=== PATIENT | female | born 1955 | race Caucasian/White ===

== ENCOUNTER → 2016-08-29 | Outpatient (CLI) | payer MEDICARE, OTHER ==
[2016-08-29 11:11] LABS: EKG EKG PERFORMED
== END ==
LOC: LABPAT 10:53
PROVIDERS: ATTEND Surgery Plastic and Reconstructive Surgery
DX: Z01.810 Encounter for preprocedural cardiovascular examination (principal); Z01.812 Encounter for preprocedural laboratory examination
CPT/HCPCS: 84132; 93005

== ENCOUNTER 2016-09-02 13:13 | Day surgery (SDC) | payer MEDICARE, OTHER ==
[2016-08-16 17:18] VITALS: BMI 29.7
--- NOTE | 2016-09-01 21:13 | P.GSHP ---
History of Present Illness H&P Date: 09/02/16 CHIEF COMPLAINT: Gastroesophageal reflux disease. HISTORY OF PRESENT ILLNESS: Amanda Elias is a 60 year-old female who is status post manometry. She has history of increasing epigastric abdominal pain and severe regurgitation with intermittent aspiration. She has severe gastroesophageal reflux disease with esophagitis including hiatal hernia. Despite medical treatment, her symptoms are uncontrolled. Now she presents for surgical intervention. Surgical and non- surgical options were reviewed and she has now elected to pursue with surgery. PAST MEDICAL HISTORY: Please see list PAST SURGICAL HISTORY: Please see list MEDICATIONS: Please see list ALLERGIES: Denies. SOCIAL HISTORY: No illicit drug use or recent tobacco use FAMILY HISTORY: Pertinent for gallbladder disease REVIEW OF ORGAN SYSTEMS: HEENT: No reports of dysphagia. Denies any trouble with vision, hearing or nosebleeds. GI: Gastroesophageal reflux disease. Regurgitation of bile at night. Her last colonoscopy was approximately 5 years with a history of polyps. Musculoskeletal: Diffuse pain and discomfort. CONSTITUTIONAL: No fevers or chills. LYMPHATIC: The patient denies any lumps and bumps around the neck. ENDOCRINE: Reports increased sweats. Denies any blood sugar glucose intolerance. RESPIRATORY: Denies pneumonia. Denies any troubles with breathing or dyspnea on exertion. CARDIOVASCULAR: Denies any chest pain, palpitations, or recent heart attacks. GENITOURINARY: Denies any blood in urine or increased urinary frequency. NEUROLOGIC: Denies any numbness or tingling along the distal extremities. No seizure disorders or headaches. PSYCHIATRIC: Denies any depression or suicidal ideation. HEMATOLOGIC: Denies any abnormal bleeding or bruising. BREASTS: Denies any breast lumps, pain or nipple discharge. PHYSICAL EXAM: VITAL SIGNS: Afebrile vital signs stable GENERAL: Well developed and in no acute distress. Pleasant. HEENT: No sclera icterus. Extraocular movements grossly intact. Moist buccal mucosa. Head is atraumatic, normocephalic. Hears conversational speech. No nasal drainage. NECK: Supple without lymphadenopathy. No JV distention. CHEST: Non-labored respirations and equal bilateral excursions. CARDIOVASCULAR: Regular rate and rhythm. Palpable 2+ radial pulses. ABDOMEN: Soft. Non-tender. Nondistended. MUSCULOSKELETAL: No clubbing, cyanosis or edema. NEUROLOGIC: No focal or lateralizing signs. PSYCH: Appropriate affect. Alert and oriented to person, place and time. STUDIES: Manometry report was reviewed and demonstrated a short lower esophageal valve, which is less than 3 cm. Separately, no evidence of esophageal dysmotility was identified. Lower esophageal sphincter pressure was within normal limits. ASSESSMENT: 1. Gastroesophageal reflux disease. 2. Diaphragmatic hiatal hernia. 3. Overweight. PLAN: 1. I have gone over dietary surveillance and counseling including preop and postoperative diet. A 2-week high protein/low caloric diet of at least 75 grams and 800 kcal was reviewed to help address hepatomegaly. She had demonstrated understanding along side with her daughter. 2. Robotic assisted laparoscopic paraesophageal hiatal hernia with Keturah fundoplasty and mesh placement was also discussed. 3. Inpatient hospitalization anticipated for 2 nights was described. 4. Postoperative complications including dysphagia was reviewed, which may need revision of her Keturah, which she also expressed understanding. 5. A postoperative Keturah diet was reviewed in detail including avoidance of foods such as meats and carbonated beverages. 6. Recommended at least 4 weeks of strict no lifting over 4 pounds in 4 weeks was advised. 7. She will follow up anytime sooner for further questions. Past Medical History Past Medical History: COPD, GERD/Reflux, Osteoarthritis (OA), Thyroid Disorder Additional Past Medical History / Comment(s): hiatal hernia, osteoarthritis back and rt hip, varicose veins, states occasional swelling in knees and feet. History of Any Multi-Drug Resistant Organisms: None Reported Past Surgical History: Section, Cholecystectomy Past Anesthesia/Blood Transfusion Reactions: No Reported Reaction Past Psychological History: Anxiety, Depression Smoking Status: Current every day smoker Past Alcohol Use History: None Reported Additional Past Alcohol Use History / Comment(s): smoker since age 16 down to 1 /2-1ppd. smoking for approx. 45 years. Past Drug Use History: None Reported - Past Family History Sister(s) Family Medical History: Deep Vein Thrombosis (DVT) Father Family Medical History: Cancer, Coronary Artery Disease (CAD) Mother Family Medical History: Cancer Medications and Allergies Home Medications Medication Instructions Recorded Confirmed Type ALPRAZolam [Xanax] 0.25 mg PO DAILY PRN 08/31/14 08/25/16 History Alendronate Sodium [Fosamax] 70 mg PO FR 08/31/14 08/25/16 History Cyclobenzaprine [Flexeril] 5 mg PO BID 08/31/14 08/25/16 History FLUoxetine HCL [PROzac] 20 mg PO DAILY 08/31/14 08/25/16 History Loratadine [Claritin] 10 mg PO DAILY 08/31/14 08/25/16 History Ranitidine HCl [Zantac] 150 mg PO BID 08/31/14 08/25/16 History Albuterol Inhaler [Ventolin Hfa 1 - 2 puff INHALATION Q6HR PRN 06/01/16 History Inhaler] Ibuprofen [Motrin] 800 mg PO BID PRN 06/01/16 08/25/16 History Acetaminophen Tab [Tylenol Tab] 1,000 mg PO BID PRN 08/25/16 08/25/16 History Benadryl 10 Mg 10 mg PO BID PRN 08/25/16 History Fluticasone Nasal [place] [Flonase 1 spray EA NOSTRIL DAILY 08/25/16 08/25/16 History Nasal [place]] Hydrochlorothiazide 25 mg PO DAILY 08/25/16 08/25/16 History Omeprazole [PriLOSEC] 20 mg PO BID 08/25/16 08/25/16 History Tiotropium 18 Mcg/Puff [Spiriva] 1 cap INHALATION DAILY 08/25/16 08/25/16 History Allergies Allergy/AdvReac Type Severity Reaction Status Date / Time No Known Allergies Allergy Verified 08/25/16 10:52
--- NOTE | 2016-09-02 12:49 | P.HPADDEND ---
H&P Addendum H&P Addendum Date: 09/02/16 PLAN: 1. I have gone over dietary surveillance and counseling including preop and postoperative diet. A 2-week high protein/low caloric diet of at least 75 grams and 800 kcal was reviewed to help address hepatomegaly. She had demonstrated understanding along side with her daughter. 2. Llaparoscopic paraesophageal hiatal hernia with Keturah fundoplasty and mesh placement was also discussed. 3. Inpatient hospitalization anticipated for 2 nights was described. 4. Postoperative complications including dysphagia was reviewed, which may need revision of her Keturah, which she also expressed understanding. 5. A postoperative Keturah diet was reviewed in detail including avoidance of foods such as meats and carbonated beverages. 6. Recommended at least 4 weeks of strict no lifting over 4 pounds in 4 weeks was advised. 7. She will follow up anytime sooner for further questions.
[~2016-09-02 13:13] MED LIST: ACETAMINOPHEN IV (For NPO) 1,000 MG in EMPTY BAG 1 BAG IVPB ONE; DEXAMETHASONE SOD PHOSPHATE 10 MG/ML 1 ML VIAL IV ONE; HEPARIN SODIUM,PORCINE 5,000 UNIT/ML 1 ML VIAL SQ ONE; HYDROmorphone 1 MG/ML 1 ML SYRINGE IVP PRN; LACTATED RINGERS 1,000 ML IV SCH; MIDAZOLAM 2 MG/2 ML VIAL IV PRN; ONDANSETRON 4 MG/2 ML VIAL IVP ONE; SCOPOLAMINE 1.5MG/72HR PATCH TRANSDERM ONE; ceFAZolin 2 GM in SODIUM CHLORIDE 0.9% 100 ML IVPB ONE
[2016-09-02] MEDS ORDERED: LIDOCAINE 1% 20 ML VIAL (10MG/ML) FOR IV START INTRADERMA ONE (13:39)
[2016-09-02] MEDS ORDERED: BUPIVACAIN-EPI 0.25%-1:200,000 30 ML VIAL SQ ONE ×4 (13:49→15:03)
[2016-09-02] MEDS ORDERED: ROCURONIUM BROMIDE 10 MG/ML 10 ML VIAL IV ONE (14:27)
[2016-09-02] MEDS ORDERED: GLYCOPYRROLATE 0.2 MG/ML 2 ML VIAL ONE (14:27)
[2016-09-02] MEDS ORDERED: NEOSTIGMINE 1 MG/ML 10 ML VIAL ONE (14:27)
[2016-09-02] MEDS ORDERED: HYDROmorphone (PF) 1 MG/ML ONE (14:27)
[2016-09-02] MEDS ORDERED: SUCCINYLCHOLINE CHLORIDE 100 MG/5 ML SYR IV ONE (14:27)
[2016-09-02] MEDS ORDERED: PHENYLEPHRINE-0.9% NACL SYG 1 MG/10 ML SYRINGE ONE (14:27)
[2016-09-02] MEDS ORDERED: MIDAZOLAM 2 MG/2 ML VIAL ONE (14:27)
[2016-09-02] MEDS ORDERED: fentaNYL (PF) 50 MCG/ML 2 ML AMP ONE (14:27)
[2016-09-02] MEDS ORDERED: PROPOFOL 10 MG/ML 20 ML VIAL IV ONE (14:27)
[2016-09-02] MEDS ORDERED: LIDOCAINE 1% INJ 10MG/ML (20 ML MDV) ONE (14:27)
[2016-09-02] MEDS ORDERED: LACTATED RINGERS 1,000 ML IV ONE (15:44)
--- NOTE | 2016-09-02 16:59 | P.PCN ---
Date of Procedure: 09/02/16 Preoperative Diagnosis: Paraesophageal hiatal hernia, esophageal reflux disease Postoperative Diagnosis: Same, peritoneal adhesions left upper abdomen and epigastrium Procedure(s) Performed: Laparoscopic paraesophageal diaphragmatic hiatal hernia repair with mesh, lysis of adhesions over 30 minutes Anesthesia: GETA, local Surgeon: April Huddleston Estimated Blood Loss (ml): 5 Pathology: none sent Condition: stable Disposition: floor Operative Findings: Thoracic length xiphoid to umbilicus 19.5 cm, hiatal defect of 4 cm, moderate adhesions left upper quadrant and epigastrium lysed over 30 minutes, intraoperative EGD demonstrates Hill grade 1 lower esophageal valve without ulcerations of the stomach
[2016-09-02] MEDS ORDERED: ACETAMINOPHEN IV (For NPO) 1,000 MG in EMPTY BAG 1 BAG IVPB ONE (17:00)
[2016-09-02] MEDS ORDERED: NALOXONE 0.4 MG/ML 1 ML VIAL IV PRN (17:00)
[2016-09-02] MEDS ORDERED: HYDROcodone/APAP 15 ML SOLUTION PO PRN (17:00)
[2016-09-02] MEDS ORDERED: diphenhydrAMINE 50 MG/ML 1 ML VIAL IVP PRN (17:00)
[2016-09-02] MEDS ORDERED: HYDROmorphone 1 MG/ML 1 ML SYRINGE IVP PRN (17:00)
[2016-09-02] MEDS ORDERED: HYOSCYAMINE ORAL DROPS 1.875 MG/15 ML BOTTLE PO PRN (17:00)
[2016-09-02] MEDS ORDERED: SIMETHICONE 40 MG/0.6 ML DROPS 2,000 MG/30 ML BOTTLE PO PRN (17:00)
[2016-09-02] MEDS: 0.9% NACL WITH KCL 20 MEQ/L 1,000 ML IV SCH (18:51)
[2016-09-03] MEDS: 0.9% NACL WITH KCL 20 MEQ/L 1,000 ML IV SCH ×2 (01:50→08:23)
[2016-09-03 07:38] LABS: Basophils % (A) 0 %; CH 29.3; Eosinophils % (A) 0 %; HCT 40.6 % (34.0-46.0); HGB 12.9 gm/dL (11.4-16.0); Luc # (Auto) 0.13; Luc % (Auto) 1; Lymphocytes % (A) 9 %; MCH 29.4 pg (25.0-35.0); MCHC 31.9 g/dL (31.0-37.0); MCV 92.2 fL (80.0-100.0); Mean Platelet Volume 8.4; Monocytes # (A) 0.4 k/uL (0-1.0); Monocytes % (A) 4 %; Neutrophils # (A) 8.6 k/uL (1.3-7.7); Neutrophils % (A) 85 %; RDW 14.4 % (11.5-15.5); WBC 10.2 k/uL (3.8-10.6); WBC (Perox) 10.66
[2016-09-03 07:50] LABS: Anion Gap 7 mmol/L; Blood Urea Nitrogen 13 mg/dL (7-17); Calcium 8.4 mg/dL (8.4-10.2); Carbon Dioxide 23 mmol/L (22-30); Chloride 111 mmol/L (98-107); Magnesium 1.8 mg/dL (1.6-2.3); Non-African American GFR(MDRD) >60 (>60 ml/min/1.73 sqM); Phosphorous 3.1 mg/dL (2.5-4.5); Potassium 4.1 mmol/L (3.5-5.1); Sodium 141 mmol/L (137-145)
[2016-09-03] MEDS ORDERED: 1: MVI, ADULT NO.4 WITH VIT K 10 ML, THIAMINE 100 MG, FOLIC ACID 1 MG, POTASSIUM CHLORID IV SCH ×6 (08:00)
[2016-09-03 08:40] VITALS: BP 108/77
[2016-09-03] MEDS ORDERED: SODIUM CHLORIDE 0.9% 1,000 ML BAG ONE (08:55)
[2016-09-03] MEDS ORDERED: ENOXAPARIN 40 MG/0.4 ML SYRINGE SQ SCH (09:00)
[2016-09-03] MEDS ORDERED: HYDROCHLOROTHIAZIDE 25 MG TAB PO SCH (09:00)
[2016-09-03] MEDS ORDERED: FLUoxetine HCL 20 MG CAP PO SCH (09:00)
[2016-09-03] MEDS ORDERED: PANTOPRAZOLE 40 MG/10 ML VIAL IV SCH (09:00)
[2016-09-03] MEDS ORDERED: TIOTROPIUM 18 MCG/PUFF INHALER INHALATION SCH (09:00)
[2016-09-03] MEDS ORDERED: LORATADINE 10 MG TAB PO SCH (09:00)
[2016-09-03] MEDS ORDERED: FLUTICASONE 50MCG/SPRAY NASAL 16GM EA NOSTRIL SCH (09:00)
--- NOTE | 2016-09-03 09:02 | FL ---
EXAMINATION TYPE: FL UGI DATE OF EXAM: 09/03/2016 7:55 AM COMPARISON: NONE HISTORY: Post hernia repair TECHNIQUE: A single contrast UGI study is performed. FINDINGS: There is no evidence of obstruction or extravasation. Contrast passed freely into the stoma ch. Subsegmental changes at both lung bases likely the basis of atelectasis.. IMPRESSION: 1. No obstruction or extravasation.
--- NOTE | 2016-09-03 11:51 | P.PN ---
Subjective Principal diagnosis: Gastroesophageal reflux disease The patient is a 61-year-old female with history of hiatal hernia including reflux disease. She had completed manometry including upper endoscopy. She underwent paraesophageal hiatal hernia repair with mesh including Keturah fundoplasty. Postoperatively she was tolerating diet. She denied symptoms of dysphagia. Post Keturah diet was reviewed in detail. Objective - Vital Signs Vital signs: Vital Signs Temp 98 F 09/03/16 07:22 Pulse 88 09/03/16 08:30 Resp 16 09/03/16 08:30 BP 108/77 09/03/16 07:22 Pulse Ox 89 L 09/03/16 08:30 Intake & Output 09/02/16 09/03/16 09/03/16 18:59 06:59 18:59 Intake Total 1700 340 120 Output Total 10 350 150 Balance 168910 30 Weight 76.204 kg Intake: IV 1700 Oral 340 120 Output: Urine 350 150 Estimated Blood Loss 10 Other: Voiding Method Toilet Toilet # Voids 1 - Exam GENERAL: Well developed and in no acute distress. Pleasant. HEENT: No sclera icterus. Extraocular movements grossly intact. Moist buccal mucosa. Head is atraumatic, normocephalic. Hears conversational speech. No nasal drainage. NECK: Supple without lymphadenopathy. No JV distention. CHEST: Non-labored respirations and equal bilateral excursions. CARDIOVASCULAR: Regular rate and rhythm. Palpable 2+ radial pulses. ABDOMEN: Soft, nontender. Nondistended. Incisions clean dry and intact. MUSCULOSKELETAL: No clubbing, cyanosis or edema. NEUROLOGIC: No focal or lateralizing signs. PSYCH: Appropriate affect. Alert and oriented to person, place and time. - Labs CBC & Chem 7: 09/03/16 07:02 09/03/16 07:02 Labs: Abnormal Lab Results - Last 24 Hours (Table) 09/03/16 09/03/16 Range/Units 07:02 07:02 Neutrophils # 8.6 H (1.3-7.7) k/uL Chloride 111 H (98-107) mmol/L Assessment and Plan (1) History of repair of hiatal hernia Status: Acute (2) Gastroesophageal reflux disease with esophagitis Status: Acute (3) Paraesophageal hernia Status: Acute (4) Status post Keturah fundoplication Status: Acute
--- NOTE | 2016-09-03 11:52 | P.DS ---
Providers Date of admission: 09/02/2016 Expected date of discharge: 09/03/16 Attending physician: April Huddleston Primary care physician: Yamel Aguilar - Discharge Diagnosis(es) (1) Gastroesophageal reflux disease with esophagitis Status: Acute (2) Paraesophageal hernia Status: Acute (3) Status post Keturah fundoplication Status: Acute Hospital Course: POSTOPERATIVE DIAGNOSES: 1. Diaphragmatic hiatal hernia. 2. Gastroesophageal reflux disease. 3. Chronic obstructive pulmonary disease. 4. Anxiety. 5. Depression. 6. Intra-abdominal adhesions, greater omentum to left upper quadrant. 7. Hypertensive cardiomyopathy without heart failure. 8. Osteoporosis. Nafisa Elias is a 60 year-old female who is status post manometry. She has history of increasing epigastric abdominal pain and severe regurgitation with intermittent aspiration. She has severe gastroesophageal reflux disease with esophagitis including hiatal hernia. Despite medical treatment, her symptoms are uncontrolled. Now she presents for surgical intervention. Surgical and non- surgical options were reviewed and she has now elected to pursue with surgery. She underwent laparoscopic hiatal hernia repair with Keturah fundoplasty and had done well. By discharge she was tolerating diet. Post Keturah diet was reviewed in detail. Pertinent Studies: Esophagram demonstrating no obstruction Procedures: OPERATION: 1. Laparoscopic reduction of incarcerated paraesophageal hiatal hernia 5 cm without obstruction. 2. Laparoscopic hiatal hernia repair [place] Biopatch A 8 x 8 cm mesh. 3. Laparoscopic Keturah fundoplasty. 4. Intraoperative esophagogastroduodenoscopy. 5. Laparoscopic lysis of adhesions over 30 minutes. Patient Condition at Discharge: Stable Plan - Discharge Summary New Discharge Prescriptions: Hydrocodone/Acetaminophen [[place] 5-325] 1 - 2 each PO Q6HR PRN #20 tab PRN Reason: Pain Discharge Medication List ALPRAZolam [Xanax] 0.25 mg PO DAILY PRN 08/31/14 [History] Alendronate Sodium [Fosamax] 70 mg PO FR 08/31/14 [History] Cyclobenzaprine [Flexeril] 5 mg PO BID 08/31/14 [History] FLUoxetine HCL [PROzac] 20 mg PO DAILY 08/31/14 [History] Loratadine [Claritin] 10 mg PO DAILY 08/31/14 [History] Albuterol Inhaler [Ventolin Hfa Inhaler] 1 - 2 puff INHALATION Q6HR PRN 12/07/ 16 [History] Ibuprofen [Motrin] 800 mg PO BID PRN 06/01/16 [History] Acetaminophen Tab [Tylenol Tab] 1,000 mg PO BID PRN 08/25/16 [History] Benadryl 10 Mg 10 mg PO BID PRN 08/25/16 [History] Fluticasone Nasal [place] [Flonase Nasal [place]] 1 spray EA NOSTRIL DAILY 08/25/16 [History] Hydrochlorothiazide 25 mg PO DAILY 08/25/16 [History] Tiotropium 18 Mcg/Puff [Spiriva] 1 cap INHALATION DAILY 08/25/16 [History] Hydrocodone/Acetaminophen [[place] 5-325] 1 - 2 each PO Q6HR PRN #20 tab 09/03/16 [Rx] Follow up Appointment(s)/Referral(s): April Huddleston MD [STAFF PHYSICIAN] - 09/06/16 4:00 pm Patient Instructions/Handouts: Adult Laparoscopic Keturah Fundoplication (DC), Full Liquid Diet (GEN), Laparoscopic Hiatal Hernia Repair (DC) Activity/Diet/Wound Care/Special Instructions: No lifting over 4 pound in 4 weeks, after September 30, 2016. Stay on your prescribed diet. No Straws, no carbonation, no caffeine. No driving, no house work, no stooping or bending over. Drink plenty of liquids, small amounts frequently. Call Dr Huddleston if you develop a fever, chills, increasing pain, vomitting, or if you have any other questions or concerns. Discharge Disposition: HOME SELF-CARE
[2016-09-03 12:53] VITALS: PULSE 99; RESP 20; TEMP 98.4
--- NOTE | 2016-09-03 21:05 | P.OP ---
Date of Procedure: 09/02/16 Description of Procedure: SURGEON: TERRENCE KELLY MD SWITCHBOARD TROUBLESHOOTER: SHANDRA TOVAR. PREOPERATIVE DIAGNOSES: 1. Diaphragmatic hiatal hernia. 2. Gastroesophageal reflux disease. 3. Chronic obstructive pulmonary disease. 4. Anxiety. 5. Depression. 6. Hypertensive cardiomyopathy without heart failure. 7. Osteoporosis. POSTOPERATIVE DIAGNOSES: 1. Diaphragmatic hiatal hernia. 2. Gastroesophageal reflux disease. 3. Chronic obstructive pulmonary disease. 4. Anxiety. 5. Depression. 6. Intra-abdominal adhesions, greater omentum to left upper quadrant. 7. Hypertensive cardiomyopathy without heart failure. 8. Osteoporosis. OPERATION: 1. Laparoscopic reduction of incarcerated paraesophageal hiatal hernia 5 cm without obstruction. 2. Laparoscopic hiatal hernia repair [place] Biopatch A 8 x 8 cm mesh. 3. Laparoscopic Keturah fundoplasty. 4. Intraoperative esophagogastroduodenoscopy. 5. Laparoscopic lysis of adhesions over 30 minutes. ANESTHESIA: General with 60 mL 0.25% Marcaine with epinephrine. ESTIMATED BLOOD LOSS: 10 mL. SPECIMENS REMOVED: None. COMPLICATIONS: None. INDICATIONS: The patient is a 61-year-old female who presents with regurgitation, gastroesophageal reflux disease poorly controlled despite medications, and a symptomatic diaphragmatic hiatal hernia. Preoperative workup including upper endoscopy demonstrated a Hill grade 4 lower esophageal valve. She completed an esophageal manometry. Given the severity of her symptoms, particularly of her symptomatic diaphragmatic hiatal hernia, she had elected for surgical intervention. Benefits and risks including bleeding, infection, recurrence, dysphagia, injury to the lung, need for further surgery was described at length. Informed consent was obtained. DESCRIPTION: Patient was brought to the operating room, laid on split leg table. After general induction, Jaramillo catheter was placed and the abdomen was prepped and draped in standard sterile fashion. Ioban draping was also placed. Prior to incision, a timeout protocol was confirmed with surgical team regarding the patient's name including procedure to be performed. A left upper quadrant 0-degree 5 mm laparoscopic trocar entry was performed. The abdominal cavity was insufflated to 15 mmHg pressure which she tolerated well. Diagnostic laparoscopy demonstrated an unremarkable liver surface. Moderate left upper quadrant and epigastric adhesions were identified of the greater omentum to the abdominal wall. A 5 mm trocar was placed along the right midclavicular line of the abdomen. Another 5-mm port was placed along the epigastrium. Using Sonicision, the adhesions were taken down including with sharp dissection with an endoscopic scissor. Lysis of adhesions were performed for over 30 minutes. Next, an 11 mm trocar was exchanged at the left upper quadrant. Another 5-mm port was placed along the left anterior axillary line under direct visualization. A medium-sized Loyd liver retractor was used to elevate the left lobe of the liver cephalad. Immediately an anterior hiatal hernia defect was encountered. Next, the liver retractor was held in place using an iron sports intern. The patient was placed in steep reverse Trendelenburg. The gastrohepatic ligament was cleaved. Next, the phrenoesophageal ligament was mobilized and the distal esophagus was mobilized circumferentially without injury to the bilateral vagi nerves. The left and right crura was identified. Using a ruler, the hiatus was measured and the defect was consistent with 4 cm. The greater curvature of the stomach along the short gastrics was also mobilized using a cordless Harmonic scalpel without injury to the spleen. Once the hiatus and crura was identified, an Endo Stitch was placed initially with a [id number] suture to reapproximate the diaphragmatic hiatus posteriorly and finally two simple sutures along the posterior aspect. To buttress the repair, a [place] Biopatch A was prepared along the back table and cut in a briceno-hole fashion as to reinforce the repair as an underlay. The mesh was placed along the crural repair and tagged using horizontal mattress sutures using 2-0 Surgidac and Covidien Endo Stitch. Next a Keturah fundoplasty was performed such that the greater curvature of stomach was performed and swung along the retrogastric space. A shoeshine technique demonstrated no tension or torsion along the proposed Keturah fundoplasty. The distal esophagus was retracted distally by the assistant center director. Next, the first stitch from a left gastric to esophageal to right gastric bites was tied. An additional suture approximately a centimeter inferiorly was placed with gastric to gastric bites. The final fundoplasty was found to lay at the 1 o'clock position without any gastrotomy and at least 2-cm in length. I went to the head of the bed to perform intraoperative esophagogastroduodenoscopy. An Olympus gastroscope was passed through posterior oropharynx, where the GE junction was found distal to the diaphragmatic hiatus. The intra-abdominal length obtained during the case was over 4 cm. The stomach was entered and bile was aspirated from the stomach. Retroflexion of the scope confirmed a Hill grade 1 lower esophageal valve. The stomach had been desufflated. No evidence of leaks were found either of the mucosal defects of the esophagus or stomach. The hiatal closure was consistent with a 54 [place] bougie as a bougie was passed. This concluded the endoscopic portion of the case. All instruments and pneumoperitoneum were evacuated from the abdominal cavity. Incisions were reapproximated using 4-0 Monocryl in an interrupted subcuticular fashion. A total of 60 mL 0.25% Marcaine with epinephrine was infiltrated in all wounds for postop analgesia. Multiple intra-abdominal films were obtained. The patient was taken to postanesthesia care unit in stable condition. Intraoperative films were reviewed with the patient's family who was pleased with the level of care. FINDINGS: 1. A 4 cm paraesophageal diaphragmatic hiatal hernia without obstruction. 2. Moderate intra-abdominal length of 4.5 cm obtained. 3. Keturah fundoplasty performed without sequelae or esophageal stenosis encountered. 4. Thoracic length xiphoid to umbilicus 19.5 cm. 5. Moderate adhesions left upper quadrant and epigastrium lysed over 30 minutes, 6. Hill grade 1 lower esophageal valve without ulcerations of the stomach
[2016-09-04] MEDS ORDERED: BISACODYL 5 MG TABLET.DR PO PRN (08:00)
== END 2016-09-03 13:06 | disposition home or self-care (01) ==
LOC: ORWHC2ENDO 13:13 → 6PED 16:53 → ORWHC2ENDO 09-03 13:06
PROVIDERS: ATTEND Surgery Plastic and Reconstructive Surgery
DX: K44.9 Diaphragmatic hernia without obstruction or gangrene (principal); K66.0 Peritoneal adhesions (postprocedural) (postinfection); K21.9 Gastro-esophageal reflux disease without esophagitis; F32.9 Major depressive disorder, single episode, unspecified; F41.9 Anxiety disorder, unspecified; I43 Cardiomyopathy in diseases classified elsewhere; I11.9 Hypertensive heart disease without heart failure; J44.9 Chronic obstructive pulmonary disease, unspecified; J45.909 Unspecified asthma, uncomplicated; F17.200 Nicotine dependence, unspecified, uncomplicated; M81.0 Age-related osteoporosis without current pathological fracture; E07.9 Disorder of thyroid, unspecified; Z79.51 Long term (current) use of inhaled steroids; Z79.899 Other long term (current) drug therapy
CPT/HCPCS: 43282; 43235; 94640; 80051; 82310; 82565; 83735 ×2; 84100; 84520; 85025; 74240; C1781; J2250; J1644; J1100; J2710; J3411; Q9967; J0690; J2405; J3480; J2001; J1650; J3010; J1170 ×2; J0131; J2370; J0330; J2704; C9113

== ENCOUNTER → 2017-10-16 | Outpatient (CLI) | payer MEDICARE, OTHER ==
--- NOTE | 2017-10-16 11:35 | MR ---
EXAMINATION TYPE: MR knee RT wo con DATE OF EXAM: 10/16/2017 COMPARISON: NONE HISTORY: Right knee pain per order. Additional symptoms of locking and swelling per patient. TECHNIQUE: Multiplanar, multisequence images of the knee is performed without IV contrast. FINDINGS: MEDIAL MENISCUS: Anterior horn is intact without tear. Triangular-shaped signal posterior horn of med ial meniscus extends to inferior articular surface. Medial extrusion of medial meniscus as noted on c oronal images with increased signal LATERAL MENISCUS: Anterior and posterior horns are intact without tear. CRUCIATE LIGAMENTS: The anterior and posterior cruciate ligaments are intact. There is marked increas ed signal throughout the anterior cruciate ligament fibers. COLLATERAL LIGAMENTS: The medial collateral ligament and lateral collateral ligament complex are inta ct. There is mild surrounding fluid medial collateral ligament with slight medial bowing due to protr uded meniscus. EXTENSOR MECHANISM: Visualized quadriceps and patellar tendons are intact. EFFUSION: There is large suprapatellar joint effusion with suggestion of synovitis as there is some i rregular linear signal, there is extension into the deep Hoffa fat pad inferiorly. POPLITEAL CYST: No popliteal/batista cyst. TRICOMPARTMENT SPACES: Fairly moderate tricompartment joint space loss is seen with mild to moderate tricompartment joint space spurring. Most prominent joint space loss is medial tibiofemoral compartme nt where there is fairly central advanced narrowing noted. CARTILAGE: There is marked thinning of articular cartilage medial tibiofemoral compartment BONE MARROW SIGNAL: No focal abnormal marrow signal is appreciated. OTHER: No additional significant abnormality is appreciated. IMPRESSION: 1. Tricompartment degenerative changes that are moderate to advanced in appearance medial tibiofemora l compartment where marked joint space loss is present. Significant cartilaginous loss is seen. 2. Large suprapatellar joint effusion with suggestion of synovitis. 3. Full-thickness tear posterior horn of medial meniscus may be on basis of medial tibiofemoral kya rtment advanced degenerative change as central body is not identified, there is near [id number] for mation noted. 4. ACL myxoid degeneration. 5. Mild MCL sprain.
== END ==
LOC: RADMRIMAIN 10:12
PROVIDERS: ATTEND Physician Assistant
DX: M17.11 Unilateral primary osteoarthritis, right knee (principal); M25.461 Effusion, right knee; S83.241A Other tear of medial meniscus, current injury, right knee, initial encounter; S83.411A Sprain of medial collateral ligament of right knee, initial encounter; M67.863 Other specified disorders of tendon, right knee

== ENCOUNTER → 2022-01-07 | Outpatient (CLI) | payer MEDICARE ==
[2022-01-07 18:33] LABS: Basophils # (A) 0.03 X 10*3/uL (0.00-0.10); Basophils % (A) 0.4 %; Eosinophils # (A) 0.25 X 10*3/uL (0.04-0.35); Eosinophils % (A) 3.1 %; HCT 45.8 % (37.2-46.3); HGB 13.9 g/dL (12.0-15.0); Immature Grans, Automated 0.2 %; Lymphocytes # (A) 1.72 X 10*3/uL (0.90-5.00); Lymphocytes % (A) 21.1 %; MCH 28.6 pg (27.0-32.0); MCHC 30.3 g/dL (32.0-37.0); MCV 94.2 fL (80.0-97.0); Mean Platelet Volume 11.5 fL (9.5-12.2); Monocytes # (A) 0.56 X 10*3/uL (0.20-1.00); Monocytes % (A) 6.9 %; NRBC Per 100 WBC 0 /100 WBCS (0.0-0.0); Neutrophils # (A) 5.58 X 10*3/uL (1.80-7.70); Neutrophils % (A) 68.3 %; Platelet Count 228 X 10*3/uL (140-440); RBC 4.86 X 10*6/uL (4.10-5.20); RDW 15.3 % (11.5-14.5); WBC 8.16 X 10*3/uL (4.50-10.00)
[2022-01-07 18:40] LABS: African American GFR (CKD) 77.2 (60.0-200.0); Anion Gap 12.1 mmol/L (10.00-18.00); BUN/Creat Ratio 13.78 Ratio (12.00-20.00); Blood Urea Nitrogen 12.4 mg/dL (9.0-27.0); Calcium 9.4 mg/dL (8.7-10.3); Carbon Dioxide 21.9 mmol/L (20.0-27.5); Non-African American GFR(CKD) 66.6 (60.0-200.0); Potassium 4.2 mmol/L (3.5-5.5)
== END | disposition home or self-care (01) ==
LOC: LABPAT 14:23
PROVIDERS: ATTEND Orthopaedic Surgery Hand Surgery
DX: Z01.818 Encounter for other preprocedural examination (principal)
CPT/HCPCS: 80048; 85025; 93005

== ENCOUNTER 2022-01-26 13:02 | Day surgery (SDC) | payer MEDICARE ==
[2022-01-24 11:55] VITALS: BMI 29.2
--- NOTE | 2022-01-24 13:18 | P.HPOR ---
History of Present Illness H&P Date: 01/24/22 Chief Complaint: Right distal radius fracture Subjective: This is a 66 year old female that presents today for initial evaluation regarding a right wrist injury that occurred on 01/04/22 when she tripped over her camper's staircase and fell on to an outstretched hand. She was seen at an outside ED where reduction was attempted and she was placed in a splint. She has had minimal pain in the splint. She denies any prior injury to this extremity in the past. She denies any paresthesias and is right hand dominant. Physical Examination: RUE: AIN/PIN/Radial/Ulnar/Median motor intact. Radial/Ulnar/Median SILT. 2+/4 Radial/Ulnar pulses palpated. 5/5 APB, 5/5 FDI. Swelling/bruising present around wrist. EPL/FPL intact. Imaging: X-Rays of the right wrist demonstrate a right intra-articular distal radius fracture with 30 degrees of dorsal angulation with fracture extension into the distal radial ulnar joint with loss of radial height. Chronic calcific changes around area of ulnar styloid fracture with possible acute non displaced distal ulnar styloid fracture. Impression: 1.) Right intra-articular distal radius fracture, displaced. Plan: Diagnosis and treatment options were discussed with the patient. Due to the amount of displacement and dorsal angulation I recommend surgical intervention. Risks and benefits of surgery including bleeding, infection, damage to surrounding tissue, need for further surgery, residual numbness were discussed and the patient wished to go forward with surgery. Labs/EKG are ordered and she will be scheduled for a right distal radius ORIF in the near future. -Nj Howe DO Orthopedic Hand/Upper Extremity Surgeon Past Medical History Past Medical History: COPD, GERD/Reflux, Hyperlipidemia, Hypertension, Osteoarthritis (OA), Thyroid Disorder Additional Past Medical History / Comment(s): hiatal hernia repair., varicose veins, occasional swelling lower extremities., hx fall 01/04/22 with fx right wrist-states wearing brace. History of Any Multi-Drug Resistant Organisms: None Reported Past Surgical History: Section, Cholecystectomy, Hernia Repair Additional Past Surgical History / Comment(s): HIATAL HERNIA. COLONOSOCPY Past Anesthesia/Blood Transfusion Reactions: No Reported Reaction Smoking Status: Current every day smoker, Heavy tobacco smoker - Past Family History Sister(s) Family Medical History: Deep Vein Thrombosis (DVT) Father Family Medical History: Cancer, Coronary Artery Disease (CAD) Mother Family Medical History: Cancer Medications and Allergies Home Medications Medication Instructions Recorded Confirmed Type Albuterol Nebulizer 1 dose PO DIRECTED PRN 01/10/22 History Atorvastatin Calcium [Lipitor] 40 mg PO DAILY 01/10/22 01/24/22 History Dicyclomine [Bentyl] 10 mg PO TID 01/10/22 01/24/22 History Ibuprofen [Motrin] 600 mg PO Q8HR PRN 01/10/22 01/24/22 History Umeclidinium [place] [Incruse 1 puff INHALATION QAM 01/10/22 01/24/22 History Ellipta] buPROPion XL [Wellbutrin XL] 300 mg PO DAILY 01/10/22 01/24/22 History hydroCHLOROthiazide 12.5 mg PO DAILY 01/10/22 01/24/22 History Allergies Allergy/AdvReac Type Severity Reaction Status Date / Time latex Allergy Rash/Hives Verified 01/24/22 11:43 Physical Examination Osteopathic Statement: *. No significant issues noted on an osteopathic structural exam other than those noted in the History and Physical/Consult.
[~2022-01-26 13:02] MED LIST changes: -ACETAMINOPHEN IV (For NPO) 1,000 MG in EMPTY BAG 1 BAG IVPB ONE; -DEXAMETHASONE SOD PHOSPHATE 10 MG/ML 1 ML VIAL IV ONE; +DEXAMETHASONE SOD PHOSPHATE 4 MG/ML 1 ML VIAL IV ONE; -HEPARIN SODIUM,PORCINE 5,000 UNIT/ML 1 ML VIAL SQ ONE; +HYDROmorphone 0.5 MG/0.5 ML SYRINGE IVP PRN; -HYDROmorphone 1 MG/ML 1 ML SYRINGE IVP PRN; -MIDAZOLAM 2 MG/2 ML VIAL IV PRN; -SCOPOLAMINE 1.5MG/72HR PATCH TRANSDERM ONE; -ceFAZolin 2 GM in SODIUM CHLORIDE 0.9% 100 ML IVPB ONE
[2022-01-26 13:24] VITALS: TEMP 97.9
[2022-01-26] MEDS ORDERED: LACTATED RINGERS 1,000 ML IV ONE (13:30)
[2022-01-26] MEDS ORDERED: ONDANSETRON 4 MG/2 ML VIAL IVP ONE (13:34)
[2022-01-26] MEDS ORDERED: DEXAMETHASONE SOD PHOSPHATE 4 MG/ML 1 ML VIAL IVP ONE (13:34)
[2022-01-26] MEDS ORDERED: MIDAZOLAM 2 MG/2 ML VIAL IVP ONE (13:47)
[2022-01-26] MEDS ORDERED: fentaNYL (PF) 50 MCG/ML 2 ML AMP ONE (14:06)
[2022-01-26] MEDS ORDERED: PROPOFOL 10 MG/ML 20 ML VIAL IV ONE (14:06)
[2022-01-26] MEDS ORDERED: ROPIVACAINE 5 MG/ML 30 ML VIAL ONE (14:06)
[2022-01-26] MEDS ORDERED: MIDAZOLAM 2 MG/2 ML VIAL ONE (14:06)
[2022-01-26 15:25] VITALS: RESP 16
[2022-01-26 15:36] VITALS: BP 107/72; PULSE 81
--- NOTE | 2022-01-26 15:58 | P.OP ---
Date of Procedure: 01/26/22 Preoperative Diagnosis: Right intra-articular distal radius fracture. Postoperative Diagnosis: Right intra-articular distal radius fracture. Procedure(s) Performed: ORIF right intra-articular distal radius fracture, 3 part. Implants: Toño/Biomet DVR crosslock volar distal radius plate, standard length, narrow width. Anesthesia: regional Surgeon: Nj Howe Systems Technician #1: Sylvain Bay Estimated Blood Loss (ml): 5 Pathology: none sent Condition: stable Disposition: PACU Description of Procedure: This is a 66 year old female who sustained a displaced intra-articular distal radius fracture roughly 3.5 weeks prior, do to insurance issues she had a delayed presentation for surgery and presents today for open reduction internal fixation of her right distal radius fracture. Risks and benefits of surgery were discussed with the patient including bleeding, damage to surrounding tissue, infection, need for further surgery as well as risks of anesthesia including pulmonary embolism and even and the patient wished to proceed with surgical intervention. The patients was seen in the pre-operative area by myself. Consent and H&P were completed and updated. The correct extremity was marked in the pre-operative area by myself and all other questions were answered. Operative Narrative: The patient was brought to the operating room by the department of anesthesia. They remained on the portable stretcher and a rolling hand table was brought to the side of the operative extremity. Pre-operative time out was performed indicating the correct patient, procedure and laterality. All in the room agreed. Pre-operative antibiotics were given prior to skin incision. The patient was then drifted off to sleep by the department of anesthesia. A nonsterile tourniquet was then applied to the operative extremity and the right upper extremity was then prepped and draped in normal sterile fashion. The operative extremity was the exsanguinated with an esmarch bandage and the tourniquet was inflated to 250mmHg. A longitudinal incision centered over the FCR tendon was made with a 15-blade scalpel. Blunt dissection was taken down to the FCR tendon sheath using Bovie cautery for meticulous hemostasis. The FCR sheath was opened with tenotomy scissors. The floor of the FCR sheath was then incised with a 15-blade scalpel and the FPL tendon and muscle belly was swept bluntly in an ulnar direction to reveal the pronator quadratus. Pronator quadratus was sharply incised with a 15-blade scalpel along the radial border of the distal radius, coming across transversely parallel to the joint at the level of the watershed line, radial artery was identified and protected. Periosteal elevator as then used to elevate the pronator quadratus off the distal radius from a radial to ulnar fashion. Rongeur and periosteal elevator was used to take down the abundant callous formation at the fracture site on volar, radial and ulnar aspects of the distal radius. A [place] elevator was used to lever the distal piece back into place and free up the fractured fragments. A Standard/narrow width Toño/biomet crosslock DVR plate was chosen to fit the patients anatomy best. This was placed on the distal radius under direct visualization and the K- wire was placed in the shaft k-wire hole. The fracture was then reduced to the plate distally and a k-wire was placed in the ulnar most k-wire hole in the proximal row. Fluoroscopy was then utilized to confirm correct placement of plate in the radial/ulnar plane and distal k-wire placement was confirmed to be proximal to the subchondral bone on 20 degree elevated lateral view confirming extra- articular screw placement. Anglican of radial height, inclination and volar tilt was achieved. The oblong hole was drilled and filled with a cortical screw. The proximal row and radial styloid screw hole was then drilled and filled from ulnar to radial with locking screws. Distal row was then drilled and filled with locking smooth pegs. Attention was then brought to the proximal shaft screws. Proximal crosslocking shaft screws were drilled with a nonlocking screws. The wrist joint was the ranged and full smooth flexion/extension with no crepitus appreciated. Final imaging was taken confirming extra-articular placement of distal screws at DRUJ and radiocarpal joint. The wound was then irrigated. Subcutaneous closure was performed with 3-0 vicryl followed by skin closure with 4-0 nylon suture. Sterile dressing consisting of adaptic,, 4x4s, and a volar plaster splint was applied. Tourniquet was let down and the hand had immediate perfusion. The patient was then woken by the department of anesthesia and transferred to PACU in stable condition. The patient was then woken by the department of anesthesia and transferred to PACU in stable condition. Sylvain BECERRA was present for the case and assisted in major portions of the operation and hardware placement. Nj Howe D.O. Orthopedic Hand/Upper Extremity Surgeon
--- NOTE | 2022-01-26 17:28 | P.ANPRN ---
Procedure Note - Anesthesia - Nerve Block Performed Right Axillary Time Out Performed: Yes (13:46) Date of Procedure: 01/26/22 Procedure Start Time: :46 Procedure Stop Time: 13:55 Location of Patient: PreOp Indication: Acute Post-Operative Pain, Requested by Surgeon (Dr Howe) Sedation Type: Sedate with meaningful contact maintained Preparation: Sterile Prep Position: Supine Catheter: None Needle Types: Pajunk Needle Gauge: Other (see comment) (22g) Ultrasound used to visualize needle placement: Yes Ultrasound used to observe medication spread: Yes Injectate: 0.5% Ropivacaine (see comment for volume) (22cc) Blood Aspirated: No Pain Paresthesia on Injection Noted: No Resistance on Injection: Normal Image Stored and Saved: Yes Events: Uneventful and Well Tolerated
== END 2022-01-26 15:52 | disposition home or self-care (01) ==
LOC: OR 13:02
PROVIDERS: ATTEND Orthopaedic Surgery Hand Surgery
DX: S52.571A Other intraarticular fracture of lower end of right radius, initial encounter for closed fracture (principal); W01.0XXA Fall on same level from slipping, tripping and stumbling without subsequent striking against object, initial encounter; G89.18 Other acute postprocedural pain; Z90.49 Acquired absence of other specified parts of digestive tract; F17.200 Nicotine dependence, unspecified, uncomplicated; Z80.9 Family history of malignant neoplasm, unspecified; Z82.49 Family history of ischemic heart disease and other diseases of the circulatory system; Z79.899 Other long term (current) drug therapy; Z91.040 Latex allergy status; E78.5 Hyperlipidemia, unspecified; I10 Essential (primary) hypertension; J44.9 Chronic obstructive pulmonary disease, unspecified; M19.90 Unspecified osteoarthritis, unspecified site; K21.9 Gastro-esophageal reflux disease without esophagitis; E07.9 Disorder of thyroid, unspecified
CPT/HCPCS: 64415; 76942; 25609; C1713; J2250; J1100; J0690; J2405; J3010; J2795; J2704

== ENCOUNTER → 2022-04-29 | Outpatient (CLI) | payer MEDICARE | END | disposition home or self-care (01) | LOC: LABPAT 10:01 | PROVIDERS: ATTEND Orthopaedic Surgery | DX: Z01.812 Encounter for preprocedural laboratory examination (principal); Z22.322 Carrier or suspected carrier of Methicillin resistant Staphylococcus aureus; M17.12 Unilateral primary osteoarthritis, left knee | CPT/HCPCS: 87070 ==

== ENCOUNTER 2022-05-24 10:58 | Day surgery (SDC) | payer MEDICARE ==
--- NOTE | 2022-05-23 08:37 | P.HPOR ---
History of Present Illness H&P Date: 05/23/22 Chief Complaint: Right knee pain The patient is a 66-year-old female who presents with progressive right knee pain for the past couple years. She notes swelling, stiffness, and pain with any prolonged weightbearing activities. She's tried previous medications along with other modalities without much relief. She has daily pain that limits her. Review of Systems As per HPI Past Medical History Past Medical History: COPD, GERD/Reflux, Hyperlipidemia, Hypertension, Osteoarthritis (OA) Additional Past Medical History / Comment(s): varicose veins, occasional swelling ankles, no BP problems per pt., doesn't take anything for History of Any Multi-Drug Resistant Organisms: None Reported Past Surgical History: Section, Cholecystectomy, Hernia Repair, Orthopedic Surgery Additional Past Surgical History / Comment(s): HIATAL HERNIA repair, colonoscopy, ORIF right wrist Past Anesthesia/Blood Transfusion Reactions: No Reported Reaction Smoking Status: Current every day smoker, Heavy tobacco smoker - Past Family History Sister(s) Family Medical History: Deep Vein Thrombosis (DVT) Father Family Medical History: Cancer, Coronary Artery Disease (CAD) Mother Family Medical History: Cancer Medications and Allergies Home Medications Medication Instructions Recorded Confirmed Type Albuterol Nebulized [Ventolin 2.5 mg INHALATION Q6H PRN 01/10/22 05/17/22 History Nebulized] Atorvastatin Calcium [Lipitor] 40 mg PO DAILY 01/10/22 05/17/22 History Dicyclomine [Bentyl] 10 mg PO TID 01/10/22 05/17/22 History buPROPion XL [Wellbutrin XL] 300 mg PO DAILY 01/10/22 05/17/22 History hydroCHLOROthiazide 12.5 mg PO DAILY PRN 01/10/22 05/17/22 History Acetaminophen-Codeine 300-30mg 1 tab PO Q4H PRN 3 Days #18 tablet 01/26/22 05/17/22 Rx [Tylenol w/codeine #3] Naproxen Sodium [Aleve] 220 mg PO BID PRN 05/17/22 05/17/22 History Budesonide/Glycopyr/Formoterol 1 puff INHALATION BID PRN 05/18/22 05/18/22 History [Breztri Aerosphere Inhaler] Allergies Allergy/AdvReac Type Severity Reaction Status Date / Time latex Allergy Rash/Hives Verified 05/17/22 12:36 Physical Examination - Knee right Appearance: effusion Effusion grade: grade 1 Varus alignment in stance: 5 degrees Tenderness with palpation: medial Pain: with flexion Gait: limping ROM: extension: -10 degrees ROM: flexion: 100 degrees Strength: extension: 5/5 Strength: flexion: 5/5 Meniscal tests: medial meniscal tests: positive Results The patient is a well-developed well-nourished female approximately 5 foot 3, 170 pounds of endomorphic habitus. HEENT exam is nonfocal, neck is supple. She has painless passive motion of the right hip. Straight leg raise negative. Her distal neurovascular appears intact in the right lower extremity. - Diagnostic results Knee x-ray: image reviewed (He views of the right knee obtained inthe office show severe medial and patellofemoral compartment narrowing with [id number] changes and subchondral sclerosis.) Assessment and Plan Assessment: Right knee severe medial and patellofemoral compartment osteoarthrosis Plan: I talked with the patient went regarding her condition and treatment options. At this point she is quite limited because of pain related to her osteoarthrosis despite previous conservative measures. After thorough discussion she has proceed with surgery. We'll plan to proceed with right total knee arthroplasty. We'll institute DVT prophylaxis postoperatively. Risks and benefits were discussed at length in layman's terms.
[~2022-05-24 10:58] MED LIST changes: +ACETAMINOPHEN TAB 500 MG TAB PO PRN; -LACTATED RINGERS 1,000 ML IV SCH; +MELOXICAM 7.5 MG TAB PO PRN; +TRANEXAMIC ACID IN NACL,ISO-OS 1,000 MG in SALINE 1 100ML.BAG IVPB PRN
[2022-05-24] MEDS: LACTATED RINGERS 1,000 ML IV SCH (11:45)
[2022-05-24] MEDS ORDERED: fentaNYL (PF) 50 MCG/1 ML VIAL IVP ONE (12:21)
[2022-05-24] MEDS ORDERED: MIDAZOLAM 2 MG/2 ML VIAL IVP ONE (12:21)
[2022-05-24] MEDS ORDERED: fentaNYL (PF) 50 MCG/ML 2 ML AMP ONE (12:47)
[2022-05-24] MEDS ORDERED: PROPOFOL 10 MG/ML 20 ML VIAL IV ONE (12:47)
[2022-05-24] MEDS ORDERED: TRANEXAMIC ACID IN NACL,ISO-OS 1,000 MG/100 ML BAG ONE (12:47)
[2022-05-24] MEDS ORDERED: ROPIVACAINE 5 MG/ML 30 ML VIAL ONE (12:47)
[2022-05-24] MEDS ORDERED: MIDAZOLAM 2 MG/2 ML VIAL ONE (12:47)
[2022-05-24] MEDS ORDERED: HYDROmorphone (PF) 1 MG/ML ONE (12:47)
[2022-05-24] MEDS ORDERED: SODIUM CHLORIDE 0.9% (PF) 10 ML VIAL ONE (12:47)
[2022-05-24] MEDS ORDERED: SUCCINYLCHOLINE CHLORIDE 200 MG/10 ML VIAL IV ONE (12:47)
[2022-05-24] MEDS ORDERED: LIDOCAINE 2% INJ 20 MG/ML (2 ML VIAL) ONE (12:47)
[2022-05-24] MEDS ORDERED: ceFAZolin 1,000 MG in SODIUM CHLORIDE 0.9% 1,000 ML IRRIGATION ONE (13:23)
--- NOTE | 2022-05-24 13:39 | P.ANPRN ---
Procedure Note - Anesthesia - Nerve Block Performed Right Adductor Canal Infusion Time Out Performed: Yes (1220) Date of Procedure: 05/24/22 Procedure Start Time: 12: Procedure Stop Time: : Location of Patient: PreOp Indication: Acute Post-Operative Pain, Requested by Surgeon Specifically requested for management of pain by : Tremayne Vega Sedation Type: Sedate with meaningful contact maintained Preparation: Sterile Prep, Sterile Dressing Position: Supine Catheter Depth at Skin (cm): 7 Catheter: Indwelling Needle Types: Pajunk Needle Gauge: 18 Ultrasound used to visualize needle placement: Yes Ultrasound used to observe medication spread: Yes Injectate: 0.5% Ropivacaine (see comment for volume) (15cc + 5cc nacl pf) Blood Aspirated: No Pain Paresthesia on Injection Noted: No Resistance on Injection: Normal Image Stored and Saved: Yes Events: Uneventful and Well Tolerated
--- NOTE | 2022-05-24 13:45 | P.ANPRN ---
Procedure Note - Anesthesia - Nerve Block Performed Right iPack Single Time Out Performed: Yes (7290) Date of Procedure: 05/24/22 Procedure Start Time: Procedure Stop Time: Location of Patient: PreOp Indication: Acute Post-Operative Pain, Requested by Surgeon Specifically requested for management of pain by DrFreeman: Tremayne Vega Sedation Type: Sedate with meaningful contact maintained Preparation: Sterile Prep Position: Supine Catheter: None Needle Types: Pajunk Needle Gauge: 21 Ultrasound used to visualize needle placement: Yes Ultrasound used to observe medication spread: Yes Injectate: 0.5% Ropivacaine (see comment for volume) (15cc + 5cc nacl pf) Blood Aspirated: No Pain Paresthesia on Injection Noted: No Resistance on Injection: Normal Image Stored and Saved: Yes Events: Uneventful and Well Tolerated
[2022-05-24] MEDS ORDERED: NALOXONE 0.4 MG/ML 1 ML VIAL IV PRN (14:31)
[2022-05-24] MEDS ORDERED: HYDROmorphone 0.5 MG/0.5 ML SYRINGE IVP PRN ×2 (14:31)
[2022-05-24] MEDS ORDERED: HYDROcodone/APAP 5-325MG 1 EACH TAB PO PRN (14:31)
[2022-05-24] MEDS ORDERED: LACTATED RINGERS 1,000 ML IV ONE (14:38)
--- NOTE | 2022-05-24 15:01 | P.OP ---
Date of Procedure: 05/24/22 Preoperative Diagnosis: Right knee severe tricompartmental osteoarthrosis Postoperative Diagnosis: Same Procedure(s) Performed: Right total knee arthroplastycementedcruciate retaining Implants: [employer] journeyed 2 size 5 cemented femoral component, size 3 cemented tibial component, 9 mm articular surface, 29 mm cemented patellar component. This is a cruciate retaining implant. Anesthesia: GETA, regional, spinal Surgeon: Tremayne Vega Veterinary Attendant #1: Sylvain Bay Estimated Blood Loss (ml): 50 Pathology: other (Bone fragments) Condition: stable Disposition: PACU Indications for Procedure: The patient is a 66-year-old female who presents with progressive right knee pain secondary to osteoarthrosis despite conservative measures. A discussion of the risks and benefits of operative intervention versus continued conservative measures was made with the patient. She opted to proceed with surgery. Operative risks to include infection, neurovascular injury, development of blood clots, possible component loosening/failure and need for subsequent procedures was discussed. Informed consent was obtained. Operative Findings: As below Description of Procedure: The patient was brought to the operating room, and after induction of spinal anesthesia the right lower extremity was prepped and draped in a normal fashion. The tourniquet was inflated to 270 mmHg. A longitudinal incision extending 3 finger breaths above the superior pole of the patella extending to the medial aspect the tibial tubercle was then made. The skin and subcutaneous tissues were divided sharply. Electrocautery was used for hemostasis. A medial parapatellar arthrotomy was then performed. The medial soft tissues to include the superficial and deep portions of the medial collateral ligament as well as the medial hamstring tendons were elevated subperiosteally. The proximal medial tibia osteophytes were carefully removed. The patella was everted. The knee was flexed. A portion of the retropatellar fat pad was excised sharply. The anterior cruciate ligament was sacrificed. A starting hole was made in the distal femur 1 cm anterior to the posterior cruciate origin. An intramedullary femoral guide was gently inserted planning on 5 valgus distal cut with 9 mm distal resection. The cutting block was pinned in place. The distal cut was then made. The posterior referencing sizing guide was utilized. 3 of external rotation was built into the system and verified off the trans- epicondylar axis and the posterior condyles. I felt size 5 was most appropriate . The cutting block was pinned in place. The anterior, posterior, and chamfer cuts were then made. The bone fragments were removed. A sulcus cut was then made with the appropriate guide. The trial size 5 femoral component was then placed and was fully seated. There was good anterior to posterior and medial to lateral fit. The distal peg holes were then drilled. The trial component was then removed. Attention was then paid towards preparing the proximal tibia. An extra medullary guide was utilized in line with the tibial shaft and second metatarsal distally. A 7 posterior slope was planned. I planned on 2 mm resection from the medial compartment. The cutting block was pinned in place. The proximal tibial cut was then made. The bone was removed in one fragment. The remnants of the medial and lateral menisci were excised the capsule junction with electrocautery. The tibia sized most appropriately at size 3. The posterior osteophytes off the distal femur were carefully removed with a curved osteotome. The trial tibial and femoral components were placed along with a 9 millimeters articular surface. I was able to obtain full flexion and extension with good stability with varus and valgus stress. After several flexion and extension cycles, the tibial rotation was marked with electrocautery in line with the medial one third of the tibial tubercle. Attention was then paid towards preparing the patella. A patella reamer was utilized taking this down to 14 mm of bone stock. A good flush cut was made. The patella sized most appropriately at 9 millimeters. The peg holes were then drilled. The trial component was placed. The knee was taken through a range of motion. I had good patellofemoral tracking with no hands technique. The trial components were then removed. The tibia was prepared in the appropriate rotation with appropriate drill and keel punch. The flexion and extension gaps were checked and felt to be symmetric. The posterior soft tissues were injected with ropivacaine. The bony surfaces were prepared with pulsatile lavage and dried. The deep tibial component was then cemented in place and was fully seated. Excess cement was removed. The femoral component was cemented in place and was fully seated. Again excess cement was removed. The trial 9 millimeters surface was then inserted in the knee was put in full extension. The patella component was cemented in place. After the cement had sufficiently hardened, the knee was again taken through a range of motion. Again there was good stability in flexion and extension with varus and valgus stress. The trial articular surface was then removed. The final articular surface was placed and was impacted. Care was taken to avoid any soft tissue interposition. Pulsatile lavage was again utilized. The tourniquet was deflated with approximately 60 minutes total tourniquet time. There was minimal drainage therefore a deep drain was not placed. The medial parapatellar arthrotomy was then closed with #2 Ethibond suture. The subcutaneous tissues were reapproximated interrupted 2-0 Vicryl sutures. The skin was reapproximated with 3-0 subarticular strata fix suture. Skin tape and adhesive was applied. A sterile dressing was applied. The patient was then awoken from sedation and transferred to recovery room in good condition. Blood loss was estimated at[] milliliters. No complications were incurred. Sponge and needle counts were correct at the end the case. Sylvain BECERRA assisted during the major components this case to include exposure, bone resection, and implantation.
[2022-05-24] MEDS ORDERED: ROPIVACAINE 0.2%-NS ON-Q PUMP 2 MG/ML EACH MISCELLANE ONE (15:15)
--- NOTE | 2022-05-24 15:25 | XR ---
EXAMINATION TYPE: XR knee limited RT DATE OF EXAM: 05/24/2022 CLINICAL HISTORY: Right knee pain and arthritis status post total knee replacement. TECHNIQUE: Portable AP and crosstable lateral views of the right knee are obtained immediately posto peratively. COMPARISON: MRI right knee October 16, 2017 FINDINGS: Metallic hardware from total right knee arthroplasty is seen and appears satisfactory in a lignment and position. There is evidence of recent surgery with diffuse subcutaneous gas and soft ti ssue swelling noted. IMPRESSION: METALLIC HARDWARE FROM TOTAL RIGHT KNEE ARTHROPLASTY IS SATISFACTORY IN ALIGNMENT.
[2022-05-24] MEDS ORDERED: ALBUTEROL NEBULIZED 2.5 MG/3 ML INHALATION STA (17:00)
[2022-05-24] MEDS ORDERED: SENNOSIDES-DOCUSATE SODIUM 1 EACH TAB PO SCH (21:00)
[2022-05-25] MEDS: HYDROcodone/APAP 7.5-325MG 1 EACH TAB PO PRN ×2 (05:58→13:01)
[2022-05-25 07:58] VITALS: BP 105/71; TEMP 98.1
[2022-05-25] MEDS ORDERED: RIVAROXABAN 10 MG TAB PO SCH (09:00)
[2022-05-25] MEDS: LACTATED RINGERS 1,000 ML IV SCH (09:53)
[2022-05-25] MEDS ORDERED: buPROPion XL 300 MG TAB.ER.24H PO SCH (10:00)
[2022-05-25] MEDS ORDERED: DICYCLOMINE 10 MG CAP PO PRN (10:00)
[2022-05-25] MEDS ORDERED: ALBUTEROL NEBULIZED 2.5 MG/3 ML INHALATION PRN (10:00)
[2022-05-25] MEDS ORDERED: ATORVASTATIN 40 MG TAB PO SCH (10:00)
[2022-05-25] MEDS ORDERED: FORMOTEROL FUMARATE 20 MCG/2 ML NEBU INHALATION SCH (10:01)
[2022-05-25] MEDS ORDERED: BUDESONIDE 1 MG/2 ML NEBU INHALATION SCH (10:01)
[2022-05-25] MEDS ORDERED: PANTOPRAZOLE 40 MG TABLET PO SCH (10:15)
[2022-05-25 10:29] LABS: Basophils # (A) 0.01 X 10*3/uL (0.00-0.10); Basophils % (A) 0.1 %; Eosinophils # (A) 0.02 X 10*3/uL (0.04-0.35); Eosinophils % (A) 0.2 %; HGB 12.7 g/dL (12.0-15.0); Immature Grans, Automated 0.4 %; Lymphocytes # (A) 1.31 X 10*3/uL (0.90-5.00); Lymphocytes % (A) 11.5 %; MCH 29.3 pg (27.0-32.0); MCHC 31.8 g/dL (32.0-37.0); MCV 92.2 fL (80.0-97.0); Mean Platelet Volume 11.6 fL (9.5-12.2); Monocytes # (A) 0.86 X 10*3/uL (0.20-1.00); Monocytes % (A) 7.6 %; NRBC Per 100 WBC 0 /100 WBCS (0.0-0.0); Neutrophils # (A) 9.13 X 10*3/uL (1.80-7.70); Neutrophils % (A) 80.2 %; Platelet Count 227 X 10*3/uL (140-440); RBC 4.34 X 10*6/uL (4.10-5.20); RDW 14.7 % (11.5-14.5); WBC 11.37 X 10*3/uL (4.50-10.00)
--- NOTE | 2022-05-25 10:38 | P.DS ---
Providers Date of admission: 05/24/2022 Expected date of discharge: 05/25/22 Attending physician: Tremayne Vega Consults: 05/24/22 14:33 Consult Physician Routine Consulting Provider: Daisy Purdy Consult Reason/Comments: Medical Management s/p right total knee arthroplasty Do you want consulting provider notified?: Yes Primary care physician: Ludmila Gonzalez Hospital Course: Date of admission: 05/24/2022 Date of discharge: 05/25/2022 Admission diagnosis: Right knee osteoarthritis Discharge diagnosis: Same Attending physician: Dr. Vega Surgical procedures: Right total knee arthroplasty Brief history: Patient is a 66-year-old female with a history of progressive primary right knee osteoarthritis. At this point patient has failed conservative treatment measures and has opted to proceed with a elective total knee arthroplasty. Hospital course: Details of patient's surgery can be found in operative report. Patient tolerated the procedure well and was subsequently transported to orthopedic floor. Patient's orthopeidc and medical care was provided daily. Patient had daily physical therapy to include strengthening range of motion as well as education with walker ambulation. Patient was treated with Xarelto for their postoperative DVT prophylaxis during their inpatient stay. Patient was noted to have a relatively uneventful postoperative course. Patient reported satisfactory pain control with oral pain medications by postoperative day 1. Patient showed satisfactory progress with physical therapy. Patient moved steadily through the program and had no difficulty meeting the goals by postoperative day 1. Given patient's otherwise satisfactory course and having met physical therapy goals, plan is to discharge patient home with health services on postoperative day 1. Discharge condition/disposition: Patient will be discharged home with health services in stable condition. Discharge medications: Instructions are given on resumption of patient's normal daily medications per primary care recommendation, in addition patient will be prescribed [place]; Colace; Eliquis 2.5 mg BID x 2 weeks. Discharge instructions: 1. Wound care and infection precautions, keep incision dry and covered while showering, no lotions, creams, moisturizers. No soaking, tubs, pools, hottubs. Do not scrub over the incision. 2. Weight-bear as tolerated with walker / cane until follow-up. 3. Ice and elevate when necessary. Do not exceed 20 minutes per hour with ice pack. 4. Utilize compression sleeve until seen at first follow up appointment. 5. Visiting nursing care. 6. Home physical therapy including home CPM. 7. Pain meds and anticoagulants per prescription. 8. Pain medication has potential to cause constipation. Increase oral fluid and fiber intake. Contact primary care provider if you have not had a bowel movement within 48 hours after discharge 9. No anti-inflammatory medication until discussed at first post operative visit, this including Motrin, Aleve, Mobic, Diclofenac. 10. Follow up in office at 2 weeks postop with Dewey Powell PA-C / Sylvain Bay PA-C 11. Follow up with your primary care doctor 7-10 days after discharge. 12. Contact [facility] with any questions, . Assessment: Right knee osteoarthritis Procedures: Right total knee arthroplasty Patient Condition at Discharge: Good Plan - Discharge Summary Discharge Rx Participant: No New Discharge Prescriptions: New Docusate [Colace] 100 mg PO DAILY #30 capsule Apixaban [Eliquis] 2.5 mg PO BID #60 tab HYDROcodone/APAP 7.5-325MG [[place] 7.5] 1 each PO Q6HR PRN #28 tab PRN Reason: Pain No Action hydroCHLOROthiazide 12.5 mg PO DAILY PRN PRN Reason: Edema Dicyclomine [Bentyl] 10 mg PO TID Acetaminophen-Codeine 300-30mg [Tylenol w/codeine #3] 1 tab PO Q4H PRN 3 Days #18 tablet PRN Reason: Pain buPROPion XL [Wellbutrin XL] 300 mg PO DAILY Atorvastatin Calcium [Lipitor] 40 mg PO DAILY Albuterol Nebulized [Ventolin Nebulized] 2.5 mg INHALATION Q6H PRN PRN Reason: Shortness Of Breath Naproxen Sodium [Aleve] 220 mg PO BID PRN PRN Reason: Pain Budesonide/Glycopyr/Formoterol [Breztri Aerosphere Inhaler] 1 puff INHALATION BID PRN PRN Reason: Shortness Of Breath Discharge Medication List Albuterol Nebulized [Ventolin Nebulized] 2.5 mg INHALATION Q6H PRN 01/10/22 [History] Atorvastatin Calcium [Lipitor] 40 mg PO DAILY 01/10/22 [History] Dicyclomine [Bentyl] 10 mg PO TID 01/10/22 [History] buPROPion XL [Wellbutrin XL] 300 mg PO DAILY 01/10/22 [History] hydroCHLOROthiazide 12.5 mg PO DAILY PRN 01/10/22 [History] Acetaminophen-Codeine 300-30mg [Tylenol w/codeine #3] 1 tab PO Q4H PRN 3 Days #18 tablet 01/26/22 [Rx] Naproxen Sodium [Aleve] 220 mg PO BID PRN 05/17/22 [History] Budesonide/Glycopyr/Formoterol [Breztri Aerosphere Inhaler] 1 puff INHALATION BID PRN 05/18/22 [History] Apixaban [Eliquis] 2.5 mg PO BID #60 tab 05/25/22 [Rx] Docusate [Colace] 100 mg PO DAILY #30 capsule 05/25/22 [Rx] HYDROcodone/APAP 7.5-325MG [[place] 7.5] 1 each PO Q6HR PRN #28 tab 05/25/22 [Rx] Follow up Appointment(s)/Referral(s): Sylvain Bay, DANIEL [PHYSICIAN OFFICE ADMINISTRATIVE ASSISTANT] - 2 Weeks [facility],Equipment [NON-STAFF] - As Needed (Call [facility] once home to arrange delivery of the Continuous Passive Motion (CPM) machine. ) Patient Instructions/Handouts: Knee Replacement (DC) Activity/Diet/Wound Care/Special Instructions: Orthopedic Discharge Instructions: 1. Wound care and infection precautions, keep incision dry and covered while showering, no lotions, creams, moisturizers. No soaking, pools, hot tubs. Do not scrub over incision. 2. Weight-bear as tolerated with walker / cane until follow-up. 3. Ice and elevate when necessary. Do not exceed 20 minutes per hour with ice pack. 4. Utilize compression sleeve until seen at first follow up appointment. 5. Pain meds and anticoagulants per prescription. 6. Pain medication has potential to cause constipation. Increase oral fluid and fiber intake. Contact primary care provider if you have not had a bowel movement within 48 hours after discharge. 7. No anti-inflammatory medication until discussed at first post operative visit, this including Motrin, Aleve, Mobic, Diclofenac. 8. Follow up in office at 2 weeks postop with Dewey Powell PA-C / Sylvain Bay PA-C 9. Follow up with your primary care doctor 7-10 days after discharge. 10. Contact [facility] with any questions, . Keep incision clean, dry, intact. While showering, cover fusion tape with Saran wrap. Keep fusion tape on until follow-up in office in 2 weeks Medications: [place]; Colace; Eliquis 2.5 mg BID x 2 weeks Discharge Disposition: HOME WITH HOME HEALTH SERVICES
--- NOTE | 2022-05-25 10:46 | P.PN ---
Progress Note - Text Progress Note Date: 05/25/22 Postoperative day # 1 status post total knee arthroplasty, under spinal anesthesia, and adductor canal catheter placed for postoperative analgesia, currently at ropivacaine 0.2% 8 mL per hour and continuous infusion, visual analogue scale is 3/10, patient using oral pain medication for breakthrough pain. Assessment and plan= Acute postoperative pain, adductor canal catheter for pain control, pain is well controlled we'll continue the same management.
--- NOTE | 2022-05-25 11:19 | P.PN ---
Subjective Progress Note Date: 05/25/22 Principal diagnosis: Right knee osteoarthritis Patient seen at bedside this morning resting comfortably sitting up in chair with legs elevated. Patient says she has been walking around room using walker. Patient says she has urinated several times. Patient says she does have a walker for home. Patient says she is looking forward to going home later today. Patient says she has been having some knee pain at this time, however, it is controlled with pain medication. Patient denies chest pain, fever, shortness breath, nausea, vomiting, change in vision, loss of bowel/bladder control. Objective - Vital Signs Vital signs: Vital Signs Temp 98.1 F 05/25/22 07:57 Pulse 77 05/25/22 07:57 Resp 13 05/25/22 07:57 BP 105/71 05/25/22 07:57 Pulse Ox 94 L 05/25/22 07:57 FiO2 Intake & Output 05/24/22 05/25/22 05/25/22 18:59 06:59 18:59 Intake Total 1255 Output Total 50 Balance 1205 Weight 73 kg Intake: IV 1255 Output: Estimated Blood Loss 50 Other: # Voids 3 - Exam Right knee: Incision is clean, dry, and intact. The exofin fusion tape is in good condition. There is minimal soft tissue swelling and ecchymosis surrounding the medial and lateral aspects of the incision. Calf is soft, no tenderness with palpation. Plantar flexion, dorsiflexion, EHL, FHL are intact. Sensory exam to light touch throughout the extremity is intact, dorsal pedis pulses 2+. - Labs CBC & Chem 7: 05/25/22 06:20 Assessment and Plan Assessment: Right knee osteoarthritis Postoperative day #1 status post right total knee arthroplasty Plan: 1. Right knee osteoarthritis - right total knee arthroplasty performed yesterday, 05/24/2022. Patient stable at bedside this morning. Patient does have a walker for home. Discharge home with health services today. 2. Appreciate medical management 3. Pain management - [place] 4. DVT prophylaxis - Xarelto in hospital. Going home with eliquis 2.5 mg BID x 2 weeks 5. GI prophylaxis - senna in hospital. Going home with Colace 6. PT/OT - weightbearing as tolerated with walker 7. Encourage incentive spirometer use 8. Discharge planning - home with health services today. Time with Patient: Less than 30
[2022-05-25] MEDS ORDERED: methylPREDNISolone SOD SUCCI 40 MG/ML 1 ML VIAL IV STA (11:51)
--- NOTE | 2022-05-25 11:51 | P.CONS ---
History of Present Illness - Reason for Consult Consult date: 05/25/22 - History of Present Illness This is a pleasant 66 year female who follows with Dr. Gonzalez, medical history significant for asthma, COPD, GERD, hypertension, hyperlipidemia. Patient is a current smoker about half pack per day also has anxiety. She presents to the hospital for planned right total knee arthroplasty-cemented with cruciate remaining secondary to right knee severe tricompartemental osteoarthritis. She is evaluated today postoperative day #1. Reports pain about 3/10 to her right knee worse with activity. Controlled with oral pain medication. Passing gas. Denies shortness of breath, no chest pain. Has some faint expiratory wheezing today. She is currently on 2-3 L of oxygen via nasal cannula post procedure. She has remained afebrile, blood pressure 105/71. She has been started on eliquis for prophylaxis. Currently using her home Breztri inhaler at bedside which can continue. Recommend to complete ambulatory oxygen assessment prior to discharge, counseled extensively on smoking cessation. Patient follows with Dr Gonzalez and has a follow up appointment on May 28. Medically she is stable for discharge would recommend a short course of oral steroids as she has some expiratory wheezing noted on exam. Patient achieving 750 on IS, encouraged to continue 10 times an hour while awake. REVIEW OF SYSTEMS: CONSTITUTIONAL: No fever, no malaise, no fatigue. HEENT: No recent visual problems or hearing problems. Denied any sore throat. CARDIOVASCULAR: No chest pain, orthopnea, PND, no palpitations, no syncope. PULMONARY: No shortness of breath, no cough, no hemoptysis. GASTROINTESTINAL: No diarrhea, no nausea, no vomiting, no abdominal pain. NEUROLOGICAL: No headaches, no weakness, no numbness. HEMATOLOGICAL: Denies any bleeding or petechiae. GENITOURINARY: Denies any burning micturition, frequency, or urgency. MUSCULOSKELETAL/RHEUMATOLOGICAL: Reports 3/10 right knee pain, no burning, numbness or tingling. ENDOCRINE: Denies any polyuria or polydipsia. The rest of the 14-point review of systems is negative. PHYSICAL EXAMINATION: GENERAL: The patient is alert and oriented x3, not in any acute distress. Well developed, well nourished. HEENT: Pupils are round and equally reacting to light. EOMI. No scleral icterus. No conjunctival pallor. Normocephalic, atraumatic. No pharyngeal erythema. No thyromegaly. CARDIOVASCULAR: S1 and S2 present. No murmurs, rubs, or gallops. PULMONARY: Faint expiratory wheezing. No Cough. ABDOMEN: Soft, nontender, nondistended, normoactive bowel sounds. No palpable organomegaly. MUSCULOSKELETAL: No joint swelling or deformity. EXTREMITIES: No cyanosis, clubbing, or pedal edema. Post surgical dressing to right knee in tact. +2 pedal pulse. NEUROLOGICAL: Gross neurological examination did not reveal any focal deficits. SKIN: No rashes. Assessment and plan Assessment Postoperative day #1 right knee arthroplasty secondary to osteoarthritis COPD with mild acute exacerbation History asthma/COPD Hypertension currently low/normotensive 100s systolic Osteoarthritis Anxiety Daily nicotinue use, 1/2 pack per day GI prophylaxis DVT prophylaxis anticoagulated with eliquis per primary Full Code Plan Patient to continue all home medications Recommend to hold hydrochlorothiazide on discharge, monitor blood pressure Smoking cessation counseling provided Continue bowel regimen and GI prophylaxis with protonix Discharge on short course of oral steroids, give IV 40 mg solumedrol x 1 today. Continue inhalers/nebulizers on D/C Ambulatory oxygen test prior to discharge Continue incentive spirometer Patient is cleared medically for discharge to home with home physical therapy. The impression and plan of care has been dictated by Joanna Ward Nurse Practitioner as directed. Dr. Bambi MD I have performed a history and physical examination and medical decision making of this patient, discussed the same with the dictator, and agree with the dictators assessment and plan as written, documented as a scribe. Based on total visit time, I have performed more than 50% of this visit. Past Medical History Past Medical History: Asthma, COPD, GERD/Reflux, Hearing Disorder / Deafness, Hyperlipidemia, Hypertension, Osteoarthritis (OA) Additional Past Medical History / Comment(s): varicose veins, occasional swelling ankles, no BP problems per pt., History of Any Multi-Drug Resistant Organisms: None Reported Past Surgical History: Section, Cholecystectomy, Hernia Repair, Orthopedic Surgery Additional Past Surgical History / Comment(s): HIATAL HERNIA repair, colonoscopy, ORIF right wrist, bone removed from 4th toe right foot years ago due to a spur. Past Anesthesia/Blood Transfusion Reactions: No Reported Reaction Past Psychological History: Anxiety Additional Psychological History / Comment(s): states she has a temper/anger issues. Smoking Status: Current every day smoker, Heavy tobacco smoker Past Alcohol Use History: None Reported Additional Past Alcohol Use History / Comment(s): smoked 1-2 ppd. now down to 1/2ppd. started smoking age 16. Past Drug Use History: None Reported - Past Family History Sister(s) Family Medical History: Deep Vein Thrombosis (DVT) Father Family Medical History: Cancer, Coronary Artery Disease (CAD) Mother Family Medical History: Cancer Medications and Allergies Home Medications Medication Instructions Recorded Confirmed Type Albuterol Nebulized [Ventolin 2.5 mg INHALATION Q6H PRN 01/10/22 05/24/22 History Nebulized] Atorvastatin Calcium [Lipitor] 40 mg PO DAILY 01/10/22 05/24/22 History buPROPion XL [Wellbutrin XL] 300 mg PO DAILY 01/10/22 05/24/22 History Budesonide/Glycopyr/Formoterol 1 puff INHALATION BID PRN 05/18/22 05/24/22 History [Breztri Aerosphere Inhaler] Apixaban [Eliquis] 2.5 mg PO BID #60 tab 05/25/22 Rx Dicyclomine [Bentyl] 10 mg PO TID PRN cap 05/25/22 Rx Docusate [Colace] 100 mg PO DAILY #30 capsule 05/25/22 Rx HYDROcodone/APAP 7.5-325MG [[place] 1 each PO Q6HR PRN #28 tab 05/25/22 Rx 7.5] Pantoprazole [Protonix] 40 mg PO AC-BRKFST #30 tab 05/25/22 Rx Sennosides-Docusate Sodium 2 each PO HS tab 05/25/22 Rx [Senokot-S] predniSONE 0 mg PO DIRECTED 6 Days #10 tab 05/25/22 Rx Allergies Allergy/AdvReac Type Severity Reaction Status Date / Time latex Allergy Rash/Hives Verified 05/24/22 11:39 Physical Exam Vitals: Vital Signs Temp Pulse Resp BP BP Pulse Ox 05/25/22 07:57 98.1 F 77 13 105/71 94 L 05/25/22 01:49 98.5 F 90 16 109/65 93 L 05/24/22 21:19 86 18 05/24/22 19:23 97.8 F 86 18 107/72 94 L 05/24/22 17:44 87 18 121/75 94 L 05/24/22 16:56 75 16 120/70 96 05/24/22 16:26 74 16 119/59 96 05/24/22 16:11 74 16 121/75 95 05/24/22 15:56 77 16 106/63 94 L 05/24/22 15:41 80 16 102/67 95 05/24/22 15:26 76 16 112/58 99 05/24/22 15:11 75 16 119/70 99 05/24/22 14:56 77 16 112/67 99 05/24/22 12:34 83 16 112/61 95 05/24/22 11:37 98.5 F 61 16 106/74 96 Intake and Output 05/24/22 05/25/22 05/25/22 22:59 06:59 14:59 Other: # Voids 1 3 Weight 73 kg Results CBC & Chem 7: 05/25/22 06:20 Assessment and Plan Time with Patient: Less than 30
[2022-05-25 12:06] VITALS: PULSE 90
[2022-05-25 12:37] VITALS: RESP 16
--- NOTE | 2022-05-25 12:56 | XR ---
EXAMINATION TYPE: XR chest 2V DATE OF EXAM: 05/25/2022 COMPARISON: 09/01/2014 HISTORY: 66 year-old female shortness of breath TECHNIQUE: AP and lateral views FINDINGS: Heart normal size. Aorta and pelvic vasculature within normal limits. There is hyperinflation with in creased retrosternal clear space. Some strandy atelectasis in the lower lungs. No ramón consolidation or pleural effusion. Hazy densities relating to portable technique and body habitus. IMPRESSION: COPD. Some strandy basilar atelectasis. No definite acute process.
== END 2022-05-25 15:12 | disposition home health service (06) ==
LOC: OR 10:58 → 4SSUR 14:29 → OR 05-25 15:12
PROVIDERS: ATTEND Orthopaedic Surgery
DX: M17.11 Unilateral primary osteoarthritis, right knee (principal); G89.18 Other acute postprocedural pain; J44.9 Chronic obstructive pulmonary disease, unspecified; I10 Essential (primary) hypertension; E78.5 Hyperlipidemia, unspecified; K21.9 Gastro-esophageal reflux disease without esophagitis; F17.210 Nicotine dependence, cigarettes, uncomplicated; Z98.891 History of uterine scar from previous surgery; Z90.49 Acquired absence of other specified parts of digestive tract; Z86.73 Personal history of transient ischemic attack (TIA), and cerebral infarction without residual deficits; Z82.49 Family history of ischemic heart disease and other diseases of the circulatory system; Z79.899 Other long term (current) drug therapy; Z91.040 Latex allergy status
CPT/HCPCS: 94640 ×2; 97161; 64999; 64448; 76942; 85025; 73560; 71046; 27447; C1713; C1776; C1751; J2250; J0330; J1100; J2920; J0690 ×3; J2405; J3010 ×2; J1170; J2795 ×2; J2704; J2001; 88300